=== PATIENT | female | born 1960 | race Caucasian/White ===

== ENCOUNTER 2024-06-25 09:43 | Outpatient (CLI) | payer MEDICARE ==
--- NOTE | 2024-06-25 11:19 | DEXA Report ---
PROCEDURE: Dexa Spine and/or Hip INDICATIONS: SCREENING FOR OSTEOPOROSIS TECHNIQUE: Dual energy x-ray absorptiometry (DXA) was performed on a enymotion System. Regions measur ed are the AP Spine, femoral neck, and if needed forearm. COMPARISON: None FINDINGS: Lumbar Spine: Bone Mineral Density: 1.128 g/cm/cm,T score: -0.4. Normal Left Femoral Neck: Bone Mineral Density: 0.979 g/cm/cm, T score: -0.4, normal. Left Hip: Bone Mineral Density: 0.961 g/cm/cm,T score: -0.4. Normal FRAX not calculated due to normal T score (T score greater or equal to -1.0: NORMAL) (T score from -1.1 to -2.4: OSTEOPENIA) (T score less than or equal to -2.5 to: OSTEOPOROSIS) Impression: By WHO criteria, this patient has normal bone density. Patients with diagnosis of osteoporosis or osteopenia should have regular bone mineral density assess ment. For those eligible for Medicare, routine testing is allowed once every 2 years. Testing frequ ency can be increased for patients who have rapidly progressing disease or for those who are receivin g medical therapy to restore bone mass. Reviewed by: Jennifer Jones MD on 06/25/2024 11:18 AM PDT Approved by: Jennifer Jones MD on 06/25/2024 11:18 AM PDT Station ID: [id number]
== END 2024-06-25 09:44 | disposition home or self-care (01) ==
LOC: DI 09:43
PROVIDERS: ATTEND Student in an Organized Health Care Education/Training Program
DX: Z13.820 Encounter for screening for osteoporosis (principal); Z78.0 Asymptomatic menopausal state

== ENCOUNTER 2024-06-25 09:45 | Outpatient (CLI) | payer MEDICARE ==
--- NOTE | 2024-06-25 13:54 | Ultrasound Report ---
PROCEDURE: Aorta Screening INDICATIONS: HIST OF TOBACCO USE TECHNIQUE: Real time scanning was performed of the aorta and iliac arteries, with image documentatio n. COMPARISON: Lung cancer screening chest CT 06/25/2024. FINDINGS: Aorta: Proximal aortic diameter measures 2.4 x 2.4 cm. Mid-aorta measures 1.9 x 1.9 cm. Distal aor tic diameter is 1.6 x 1.6 cm. Iliac arteries: Right common iliac artery measures 1.3 x 1.3 cm. Left common iliac artery measures 1.3 x 1.3 cm. IMPRESSION: No aortic aneurysm. Common iliac artery ectasia. Recommended intervals for follow-up imaging of ectatic aortas and abdominal aortic aneurysms, per ACR consensus guidelines: 2.5-2.9 cm: 5 years 3.0-3.4 cm: 3 years 3.5-3.9 cm: 2 years 4.0-4.4 cm: 1 year 4.5-4.9 cm: 6 months + endovascular referral 5.0-5.5 cm: 3-6 months + endovascular referral Reviewed by: Lyle Acosta MD on 06/25/2024 1:53 PM PDT Approved by: Lyle Acosta MD on 06/25/2024 1:53 PM PDT Station ID: [id number]
--- NOTE | 2024-06-25 15:17 | CT Report ---
PROCEDURE: Lung Cancer Screen INDICATIONS: HIST OF TOBACCO USE TECHNIQUE: A CT scan of the chest was performed. Intravenous contrast media was not administered. Images were re corded and evaluated at appropriate window settings. Reformats: axial MIP of the chest, coronal and s agittal. For radiation dose reduction, the following was used: automated exposure control, adjustment of mA and/or kV according to patient size. COMPARISON: None. FINDINGS: Image quality: Excellent. Prior cancer history: Unsure. Lungs and pleura: No pleural effusions. No pneumothorax. 2 mm solid nodule, right lower lobe (series 4, image 113). A few additional solid pulmonary micronodules, best seen on series 10, notably in the left upper lobe. Mediastinum: Heart size is normal. No pericardial effusion. No large vessel abnormality. No mediastin al adenopathy by size criteria. Chest wall and lower neck: Possible 1.7 cm right thyroid nodule with calcification. No axillary or umanzor praclavicular adenopathy by size. Bones: No aggressive osseous abnormality. Upper Abdomen: Unremarkable. IMPRESSION: Lung RAD: 2 - Benign. Recommendation: Continue annual screening in 12 Months with LDCT Non-Lung Significant Findings: Mass - Neck. Recommend thyroid ultrasound. Reviewed by: Yogesh Mcfadden MD on 06/25/2024 3:15 PM PDT Approved by: Yogesh Mcfadden MD on 06/25/2024 3:15 PM PDT Station ID: [id number]
== END 2024-06-25 09:46 | disposition home or self-care (01) ==
LOC: DI 09:45
PROVIDERS: ATTEND Student in an Organized Health Care Education/Training Program
DX: Z12.2 Encounter for screening for malignant neoplasm of respiratory organs (principal); Z13.6 Encounter for screening for cardiovascular disorders; I77.89 Other specified disorders of arteries and arterioles; Z13.820 Encounter for screening for osteoporosis; Z78.0 Asymptomatic menopausal state; Z87.891 Personal history of nicotine dependence